=== PATIENT | male | born 2000 | race Caucasian/White ===

== ENCOUNTER 2024-03-12 08:01 | Emergency (ER) | payer OTHER ==
[2024-03-12 08:24] VITALS: BP 124/68; O2SAT 100
--- NOTE | 2024-03-12 08:29 | ED Physician Documentation ---
PD HPI UPPER EXT INJURY - Stated complaint Stated Complaint: RT HAND INJ - Chief complaint Chief Complaint: Trauma Ext - History obtained from History obtained from: Patient - History of Present Illness Location: Right, Finger (thumb base dorsally, extending to forearm in that line. Pain with extension and turning of thumb.) Type of injury: Other (repetitive use o hand/thumb and had had some degree opain the past week or so.). No: Fall Where injury occurred: Work Timing - onset: How many weeks ago (1) Timing - duration: Weeks (1) Timing - details: Gradual onset, Still present (much worse pain this morning on ROM.) Review of Systems Constitutional: denies: Fever, Chills Skin: denies: Rash, Lesions Neurologic: denies: Focal weakness, Numbness PD PAST MEDICAL HISTORY - Past Medical History Past Medical History: No - Past Surgical History Past Surgical History: No - Present Medications Home Medications: Ambulatory Orders Medication Instructions Recorded Confirmed Diclofenac Sodium 1% Gel [Voltaren 2 gm TOP QID 7 Days #50 gm 03/12/24 Gel] Meloxicam [Mobic] 7.5 mg PO BID 10 Days #20 tablet 03/12/24 - Allergies Allergies/Adverse Reactions: Allergies Allergy/AdvReac Type Severity Reaction Status Date / Time No Known Drug Allergies Allergy Verified 03/12/24 08:20 - Social History Does the pt smoke?: Yes Smoking Status: Current every day smoker Does the pt drink ETOH?: No Does the pt have substance abuse?: No PD ED PE NORMAL - Vitals Vital signs reviewed: Yes - General General: Alert and oriented X 3, No acute distress, Well developed/nourished - Derm Derm: Normal color, Warm and dry, No rash - Extremities Extremities: Other (The dorsum of the right thumb at the base has tenderness to palpation and passive flexion of the thumb. Minimal crepitance on passive range of motion through the tendon sheath. No redness skin sores or swelling. No obvious bony deformity and or point tenderness.) - Neuro Neuro: No motor deficit, No sensory deficit Results - Vitals Vitals: Vital Signs - 24 hr 03/12/24 08:14 Temperature 36.6 C Heart Rate 70 Respiratory 16 Rate Blood Pressure 124/68 O2 Saturation 100 Oxygen O2 Source Room air PD Medical Decision Making - ED course Complexity details: considered differential (The patient has had pain at the base dorsum of the thumb extending into the forearm with use for a week or more but much worse overnight and into this morning.), d/w patient ED course: The patient did not have any forceful injury. Physical examination does not show any obvious bony point tenderness. Exam and symptoms are consistent with a tendinitis of the EPL. We can use a thumb splint along with some anti-inflammatories both orally and topically. Limited duty for the next 5 or 6 days. Follow-up with primary care or Ortho. Departure - Departure Disposition: Home, Self Care Clinical Impression: Extensor pollicis longus tendinitis Condition: Stable Record reviewed to determine appropriate education?: Yes Instructions: De [place]ervain Tenosynovitis Follow-Up: Orthopedic Care [Provider Group] Prescriptions: Meloxicam [Mobic] 7.5 mg PO BID 10 Days #20 tablet Diclofenac Sodium 1% Gel [Voltaren Gel] 2 gm TOP QID 7 Days #50 gm Comments: The tendinitis of the extensor thumb muscle is relatively common. 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 We can do both oral and topical. To that add acetaminophen/Tylenol 500 to 650 mg 4 times daily if needed. Follow-up with your primary care or Ortho if not fully improved over the next week or so. Have the thumb out of the splint with gentle range of motion a few times daily so it does not get stiff. Anti-inflammatories were sent to your preferred pharmacy. Forms: PCP List, Activity restrictions
[2024-03-12] MEDS: ACETAMINOPHEN 500 MG TABLET PO STA (09:16)
[2024-03-12] MEDS: IBUPROFEN 800 MG TABLET PO STA (09:16)
== END 2024-03-12 09:07 | disposition home or self-care (01) ==
LOC: ED 08:01
DX: M77.8 Other enthesopathies, not elsewhere classified (principal); F17.200 Nicotine dependence, unspecified, uncomplicated
CPT/HCPCS: 99282; 99283; A9270